=== PATIENT | female | born 1955 | race Caucasian/White ===

== ENCOUNTER 2017-07-04 08:00 | Outpatient (CLI) | payer BC | END 2017-07-04 08:01 | disposition home or self-care (01) | LOC: LAB.R 08:00 | PROVIDERS: ATTEND Internal Medicine | DX: J06.9 Acute upper respiratory infection, unspecified (principal) | CPT/HCPCS: 87275; 87276 ==

== ENCOUNTER 2019-02-04 10:32 | Outpatient (CLI) | payer BC ==
--- NOTE | 2019-02-17 11:17 | Mammography Report ---
Reason: SCREENING FOR MAMMO Procedure Date: 02/04/2019 Accession Number: [id number] / [id number] Procedure: JAZMÍN - Screening Mammo Dig Bilat CPT Code: FULL RESULT: EXAM: Screening Mammo Dig Bilat DATE: 02/04/2019 11:09 AM CLINICAL HISTORY: Routine screening. No reported personal or family history of breast cancer. TECHNIQUE: (B) - Bilateral CC and MLO views were obtained. COMPARISON: 06/03/2014 PARENCHYMAL PATTERN: (D) - The breasts demonstrate heterogeneously dense fibroglandular parenchyma bilaterally. FINDINGS: Bilateral breasts: There are no suspicious masses, calcifications, or areas of distortion. IMPRESSION: Negative examination. BI-RADS category 1. RECOMMENDATION: (ANNUAL) - Recommend routine annual screening mammography. BI-RADS CATEGORY: (1) - Negative. STANDARD QUALIFYING STATEMENTS: 1. This examination was not reviewed with the aid of Computer-Aided Detection (CAD). 2. A negative or benign imaging report should not preclude biopsy if clinically suspicious findings are present. 3. Dense breasts may obscure an underlying neoplasm. 4. This examination was reviewed without the aid of 3D breast imaging (tomosynthesis).
== END 2019-02-04 10:33 | disposition home or self-care (01) ==
LOC: DI 10:32
PROVIDERS: ATTEND Family Medicine
DX: Z12.31 Encounter for screening mammogram for malignant neoplasm of breast (principal)
CPT/HCPCS: 77067

== ENCOUNTER 2021-06-09 13:10 | Outpatient (CLI) | payer BC ==
--- NOTE | 2021-06-09 14:04 | XRAY Report ---
PROCEDURE: Hand 2 View BILAT INDICATIONS: BILATERAL FINGER PAIN TECHNIQUE: 2 views of the hand(s) acquired. COMPARISON: None FINDINGS: Bones: No fractures or dislocations. Left worse than right bilateral first CMC joint osteoarthritic changes are seen. Mild osteoarthritic changes also seen in bilateral scaphotrapezial joints, first CM C joint and first interphalangeal joints. No suspicious bony lesions. Soft tissues: No suspicious soft tissue calcifications. 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 No acute fracture or dislocation. Reviewed by: Michael Martinez MD on 06/09/2021 2:03 PM PST Approved by: Michael Martinez MD on 06/09/2021 2:03 PM PST Station ID: [id number]
== END 2021-06-09 13:11 | disposition home or self-care (01) ==
LOC: DI.S 13:10
PROVIDERS: ATTEND Nurse Practitioner Family
DX: S62.631A Displaced fracture of distal phalanx of left index finger, initial encounter for closed fracture (principal); S62.630A Displaced fracture of distal phalanx of right index finger, initial encounter for closed fracture; S62.633A Displaced fracture of distal phalanx of left middle finger, initial encounter for closed fracture; S62.632A Displaced fracture of distal phalanx of right middle finger, initial encounter for closed fracture; S62.635A Displaced fracture of distal phalanx of left ring finger, initial encounter for closed fracture; M19.032 Primary osteoarthritis, left wrist; M19.031 Primary osteoarthritis, right wrist; M19.042 Primary osteoarthritis, left hand; M19.041 Primary osteoarthritis, right hand

== ENCOUNTER 2022-01-12 09:40 | Outpatient (CLI) | payer MEDICARE, BC ==
--- NOTE | 2022-01-12 11:30 | DEXA Report ---
PROCEDURE: Dexa Spine and/or Hip INDICATIONS: OSTEOPENIA TECHNIQUE: Dual energy x-ray absorptiometry (DXA) was performed on a [employer] System. Regions measur ed are the AP Spine, femoral neck, and if needed forearm. COMPARISON: None. FINDINGS: Lumbar Spine: Bone Mineral Density 0.845 g/cm/cm,T score -2.8, osteoporosis Left total Hip: Bone Mineral Density 0.673 g/cm/cm,T score -2.7, osteoporosis Left Femoral Neck: Bone Mineral Density 0.725 g/cm/cm, T score -2.3, osteopenia (T score greater or equal to -1.0: NORMAL) (T score from -1.1 to -2.4: OSTEOPENIA) (T score less than or equal to -2.5 to: OSTEOPOROSIS) Impression: Osteoporosis Monse Patients with diagnosis of osteoporosis or osteopenia should have regular bone mineral densit y assessment. For those eligible for Medicare, routine testing is allowed once every 2 years. Testi ng frequency can be increased for patients who have rapidly progressing disease or for those who are receiving medical therapy to restore bone mass. Reviewed by: Carl Zabala on 01/12/2022 11:29 AM PDT Approved by: Carl Zabala on 01/12/2022 11:29 AM PDT Station ID: [id number]
== END 2022-01-12 09:41 | disposition home or self-care (01) ==
LOC: DI 09:40
PROVIDERS: ATTEND Physician Assistant
DX: M81.0 Age-related osteoporosis without current pathological fracture (principal)